=== PATIENT | female | born 1925 | race Caucasian/White ===

== ENCOUNTER 2017-08-22 09:29 | Inpatient (IN) | payer MEDICARE, BC ==
[~2017-08-22] VITALS: Ht 157.5 cm; Wt 59.0 kg
[~2017-08-22 09:29] MED LIST: ASPI-605 PO; BISA5TAB10 PO; BRIM5DRO LEFTEYE; BRIM5DRO2 EACHEYE; CALC-25 PO; CLOZ100T32 PO; DOCU-141 PO; DONE10TA44 PO; DORZ10DR8 EACHEYE; HYDR25TA4 PO; LATA2.5D2 EACHEYE; LOPE2CAP14 PO; LORA1TAB PO; OXYB5TAB11 PO; POLY17PO4 PO; SODI3.5O4 EACHEYE; TIMO5DRO18 LEFTEYE; VENL37.55 PO
[2017-08-22 10:13] LABS: BASOPHILS # (AUTO) 0.1 K/uL (0.0-8.0); EOSINOPHILS # (AUTO) 0.3 K/uL (0.0-0.7); EOSINOPHILS % (AUTO) 3.5 % (0.0-7.0); HEMATOCRIT 37.9 % (31.2-41.9); HEMOGLOBIN 12.8 g/dL (10.9-14.3); LYMPHOCYTES # (AUTO) 1.8 K/uL (20.0-40.0); LYMPHOCYTES % (AUTO) 20.4 % (20.5-51.5); MEAN CORPUSCULAR HEMOGLOBIN 29.9 uug (24.7-32.8); MEAN CORPUSCULAR HGB CONC 34 g/dL (32.3-35.6); MEAN CORPUSCULAR VOLUME 88.4 fL (75.5-95.3); MONOCYTES % (AUTO) 10.7 % (0.0-11.0); NEUTROPHILS # (AUTO) 5.8 K/uL (1.8-8.9); NEUTROPHILS % (AUTO) 64.4 % (38.5-71.5); PLATELET COUNT (AUTO) 263 K/uL (179-408); RED BLOOD CELL COUNT(AUTO) 4.28 MIL/uL (3.63-4.92); WHITE BLOOD COUNT (AUTO) 8.9 K/uL (3.8-11.8)
[2017-08-22 10:17] LABS: CARBON DIOXIDE 27 mmol/L (21-32); CHLORIDE 102 mmol/L (98-107); CREATININE 1.2 mg/dL (0.6-1.3); GLUCOSE 156 mg/dL (74-106); UREA NITROGEN, BLOOD 17 mg/dL (7-18)
[2017-08-22 10:22] LABS: ALANINE AMINOTRANSFERASE 73 U/L (14-59); ALKALINE PHOSPHATASE 73 U/L (50-136); ASPARTATE AMINOTRANSFERASE 39 U/L (15-37); BILIRUBIN,TOTAL 0.3 mg/dL (0.2-1.0); TOTAL PROTEIN, SERUM 6.1 g/dL (6.4-8.2)
[2017-08-22] MEDS ORDERED: CEFTRIAXONE 1 G in IV DEXTROSE 5% 50 ML IV ONE (11:30)
[2017-08-22] MEDS ORDERED: CEFTRIAXONE 1 G VIAL ONE (11:34)
[2017-08-22] MEDS ORDERED: BARRIER CREAM TP (12:26)
[2017-08-22] MEDS ORDERED: FOLI0.8T PO (12:26)
[2017-08-22] MEDS ORDERED: MIRT15TA PO (12:26)
[2017-08-22] MEDS ORDERED: BRIM5DRO2 EACHEYE (12:26)
[2017-08-22] MEDS ORDERED: BENZ28CR2 TP (12:27)
[2017-08-22] MEDS ORDERED: PETR113O TP (12:27)
[2017-08-22] MEDS ORDERED: ZINC57OI3 TP (12:27)
[2017-08-22] MEDS ORDERED: NYST1POW MC (12:27)
[2017-08-22] MEDS ORDERED: ACET325T53 PO (12:27)
[2017-08-22] MEDS ORDERED: MENT71OI TP (12:27)
[2017-08-22] MEDS ORDERED: VITA1CAP47 PO (12:27)
[2017-08-22] MEDS ORDERED: GUAI5SYR4 PO (12:27)
[2017-08-22] MEDS ORDERED: LEVOFLOXACIN 750MG/D5W 750 MG in PREMIXED 1 EACH IV SCH ×2 (12:30→15:00)
[2017-08-22] MEDS ORDERED: LATANOPROST OPHT DROP 2.5 ML BOTTLE EACHEYE SCH (12:30)
[2017-08-22] MEDS ORDERED: ACETAMINOPHEN 325 MG TABLET PO PRN ×2 (12:30)
[2017-08-22] MEDS ORDERED: BISACODYL 5 MG TABLET.DR PO PRN (12:30)
[2017-08-22] MEDS ORDERED: GUAIFENESIN/CODEINE 5 ML LIQUID UDC PO PRN (12:30)
[2017-08-22] MEDS ORDERED: DORZOLAMIDE 2% OPHT DROP 10 ML BOTTLE EACHEYE SCH (12:30)
[2017-08-22 14:00] VITALS: BP 141/72
[2017-08-22 15:15] VITALS: BP 147/72
[2017-08-22] MEDS ORDERED: BLOOD SUGAR DIAGNOSTIC 1 EACH STRIP VI SCH (16:30)
[2017-08-22] MEDS: DONEPEZIL 10 MG TABLET PO SCH (17:03)
[2017-08-22] MEDS: DOCUSATE SODIUM 100 MG CAPSULE PO SCH ×2 (17:03→17:04)
[2017-08-22] MEDS: OXYBUTYNIN CHLORIDE 5 MG TABLET PO SCH (17:03)
[2017-08-22] MEDS: ASPIRIN EC 81 MG TABLET.DR PO SCH (17:03)
[2017-08-22] MEDS: BRINZOLAMIDE 1% OPHT DROP 10 ML BOTTLE EACHEYE SCH (17:04)
[2017-08-22] MEDS: HYDROCHLOROTHIAZIDE 25 MG TABLET PO SCH (17:04)
[2017-08-22] MEDS: BLOOD SUGAR DIAGNOSTIC 1 EACH STRIP VI SCH ×2 (18:36→23:59)
[2017-08-22 20:00] VITALS: BP 103/52
[2017-08-22] MEDS: LATANOPROST OPHT DROP 2.5 ML BOTTLE EACHEYE SCH (20:11)
[2017-08-22] MEDS: MIRTAZAPINE 15 MG TABLET PO SCH (20:11)
[2017-08-22] MEDS ORDERED: CLOZAPINE 100 MG TABLET PO SCH (21:00)
[2017-08-22] MEDS ORDERED: CLOZAPINE 100 MG TABLET PO ONE (21:00)
[2017-08-22] MEDS: CLOZAPINE 100 MG TABLET PO SCH (21:00)
[2017-08-23] VITALS: BP 117/63
[2017-08-23 04:00] VITALS: BP 134/73
[2017-08-23] MEDS: BLOOD SUGAR DIAGNOSTIC 1 EACH STRIP VI SCH ×4 (05:31→23:55)
[2017-08-23] MEDS: IV NS 1000 ML 1,000 ML IV PRN ×2 (06:59→22:45)
[2017-08-23 07:10] LABS: BASOPHILS % (AUTO) 0.6 % (0.0-2.0); EOSINOPHILS # (AUTO) 0.3 K/uL (0.0-0.7); EOSINOPHILS % (AUTO) 4.4 % (0.0-7.0); HEMATOCRIT 36.6 % (31.2-41.9); HEMOGLOBIN 12.1 g/dL (10.9-14.3); LYMPHOCYTES # (AUTO) 1.8 K/uL (20.0-40.0); LYMPHOCYTES % (AUTO) 22.7 % (20.5-51.5); MEAN CORPUSCULAR HEMOGLOBIN 29.4 uug (24.7-32.8); MEAN CORPUSCULAR HGB CONC 33 g/dL (32.3-35.6); MEAN CORPUSCULAR VOLUME 88.7 fL (75.5-95.3); MONOCYTES # (AUTO) 0.8 K/uL (2.0-10.0); MONOCYTES % (AUTO) 10.7 % (0.0-11.0); NEUTROPHILS # (AUTO) 4.9 K/uL (1.8-8.9); NEUTROPHILS % (AUTO) 61.6 % (38.5-71.5); PLATELET COUNT (AUTO) 240 K/uL (179-408); RED BLOOD CELL COUNT(AUTO) 4.13 MIL/uL (3.63-4.92); WHITE BLOOD COUNT (AUTO) 7.9 K/uL (3.8-11.8)
[2017-08-23 07:19] LABS: CARBON DIOXIDE 23 mmol/L (21-32); CHLORIDE 107 mmol/L (98-107); CHOLESTEROL 168 mg/dL (<200); GLUCOSE 138 mg/dL (74-106); HDL CHOLESTEROL 30 mg/dL (40-60); POTASSIUM 3.6 mmol/L (3.5-5.1); TRIGLYCERIDES 157 MG/DL (30-150); UREA NITROGEN, BLOOD 18 mg/dL (7-18)
[2017-08-23] MEDS: OXYBUTYNIN CHLORIDE 5 MG TABLET PO SCH ×2 (09:32→17:39)
[2017-08-23] MEDS: DOCUSATE SODIUM 100 MG CAPSULE PO SCH ×2 (09:32→17:39)
[2017-08-23] MEDS: HYDROCHLOROTHIAZIDE 25 MG TABLET PO SCH (09:37)
[2017-08-23] MEDS: PANTOPRAZOLE SODIUM 40 MG VIAL IV SCH (09:37)
[2017-08-23] MEDS: ASPIRIN EC 81 MG TABLET.DR PO SCH (09:37)
[2017-08-23] MEDS: BRINZOLAMIDE 1% OPHT DROP 10 ML BOTTLE EACHEYE SCH ×2 (09:38→17:40)
[2017-08-23] MEDS: DONEPEZIL 10 MG TABLET PO SCH (09:40)
[2017-08-23] MEDS: ENOXAPARIN SODIUM 40 MG/0.4 ML DISP.SYRIN SQ SCH (11:46)
[2017-08-23 11:55] VITALS: BP 110/49
[2017-08-23] MEDS: LORAZEPAM 1 MG TABLET PO PRN (15:42)
[2017-08-23 15:48] VITALS: BP 143/67
[2017-08-23 20:13] VITALS: BP 100/49
[2017-08-23] MEDS: ATORVASTATIN 20 MG TABLET PO SCH (21:00)
[2017-08-23] MEDS: MIRTAZAPINE 15 MG TABLET PO SCH (21:00)
[2017-08-23] MEDS: CLOZAPINE 100 MG TABLET PO SCH (21:00)
[2017-08-23] MEDS: LATANOPROST OPHT DROP 2.5 ML BOTTLE EACHEYE SCH (21:12)
[2017-08-24] MEDS: BLOOD SUGAR DIAGNOSTIC 1 EACH STRIP VI SCH ×4 (06:21→23:59)
[2017-08-24 06:39] VITALS: BP 153/69
[2017-08-24] MEDS: OXYBUTYNIN CHLORIDE 5 MG TABLET PO SCH ×2 (09:27→17:33)
[2017-08-24] MEDS: HYDROCHLOROTHIAZIDE 25 MG TABLET PO SCH (09:27)
[2017-08-24] MEDS: DONEPEZIL 10 MG TABLET PO SCH (09:27)
[2017-08-24] MEDS: PANTOPRAZOLE SODIUM 40 MG VIAL IV SCH (09:27)
[2017-08-24] MEDS: DOCUSATE SODIUM 100 MG CAPSULE PO SCH ×2 (09:27→17:34)
[2017-08-24] MEDS: ASPIRIN EC 81 MG TABLET.DR PO SCH (09:27)
[2017-08-24] MEDS: ENOXAPARIN SODIUM 40 MG/0.4 ML DISP.SYRIN SQ SCH (09:28)
[2017-08-24] MEDS: BRINZOLAMIDE 1% OPHT DROP 10 ML BOTTLE EACHEYE SCH ×2 (09:37→17:36)
[2017-08-24 10:46] VITALS: BP 125/49
[2017-08-24 16:09] VITALS: BP 138/67
[2017-08-24] MEDS ORDERED: LEVOFLOXACIN 750MG/D5W 750 MG in PREMIXED 1 EACH IV SCH (17:00)
[2017-08-24 19:35] VITALS: BP 135/60
[2017-08-24] MEDS: ATORVASTATIN 20 MG TABLET PO SCH (20:55)
[2017-08-24] MEDS: MIRTAZAPINE 15 MG TABLET PO SCH (20:57)
[2017-08-24] MEDS: LATANOPROST OPHT DROP 2.5 ML BOTTLE EACHEYE SCH (21:00)
[2017-08-24] MEDS: CLOZAPINE 100 MG TABLET PO SCH (21:01)
[2017-08-24] MEDS: IV NS 1000 ML 1,000 ML IV PRN (21:10)
[2017-08-25 04:35] VITALS: BP 157/64
[2017-08-25] MEDS: BLOOD SUGAR DIAGNOSTIC 1 EACH STRIP VI SCH ×2 (05:52→12:05)
[2017-08-25] MEDS ORDERED: PANTOPRAZOLE SODIUM 40 MG TABLET.DR PO SCH (07:00)
[2017-08-25] MEDS: DONEPEZIL 10 MG TABLET PO SCH (08:44)
[2017-08-25] MEDS: ASPIRIN EC 81 MG TABLET.DR PO SCH (08:44)
[2017-08-25] MEDS: DOCUSATE SODIUM 100 MG CAPSULE PO SCH ×2 (08:44→17:06)
[2017-08-25] MEDS: OXYBUTYNIN CHLORIDE 5 MG TABLET PO SCH ×2 (08:44→17:06)
[2017-08-25] MEDS: BRINZOLAMIDE 1% OPHT DROP 10 ML BOTTLE EACHEYE SCH ×2 (08:47→17:07)
[2017-08-25] MEDS: HYDROCHLOROTHIAZIDE 25 MG TABLET PO SCH (08:48)
[2017-08-25] MEDS: ENOXAPARIN SODIUM 40 MG/0.4 ML DISP.SYRIN SQ SCH (08:49)
[2017-08-25] MEDS: IV NS 1000 ML 1,000 ML IV PRN (10:29)
[2017-08-25 11:39] VITALS: BP 130/62
[2017-08-25] MEDS: LORAZEPAM 1 MG TABLET PO PRN (13:41)
[2017-08-25 15:30] VITALS: BP 146/65
== END 2017-08-25 17:13 | DRG 70 ==
LOC: ER 09:29 → TELE 12:37 → MED 08-23 10:25
PROVIDERS: ADMIT Internal Medicine; ATTEND Internal Medicine
DX: G93.41 Metabolic encephalopathy (principal); J15.9 Unspecified bacterial pneumonia; N39.0 Urinary tract infection, site not specified; F03.90 Unspecified dementia, unspecified severity, without behavioral disturbance, psychotic disturbance, mood disturbance, and anxiety; G45.9 Transient cerebral ischemic attack, unspecified; Z85.3 Personal history of malignant neoplasm of breast; Z79.82 Long term (current) use of aspirin; Z79.899 Other long term (current) drug therapy; H40.9 Unspecified glaucoma; Z90.710 Acquired absence of both cervix and uterus; Z90.10 Acquired absence of unspecified breast and nipple; M21.339 Wrist drop, unspecified wrist; I10 Essential (primary) hypertension; I25.10 Atherosclerotic heart disease of native coronary artery without angina pectoris; Z91.81 History of falling
CPT/HCPCS: 36415; 70450; 71045; 85025; 85610; 85730; 92610; 93005; 93307; 93880; 97165; A4663; C9113; J0696; J1650; J1956; J7030; J7040

== ENCOUNTER 2017-08-25 17:32 | Inpatient (IN) | payer MEDICARE, BC ==
[~2017-08-25] VITALS: Ht 157.5 cm; Wt 59.0 kg
[~2017-08-25 17:32] MED LIST changes: +ACET325T53 PO; +BARRIER CREAM TP; +BENZ28CR2 TP; -BRIM5DRO LEFTEYE; -CALC-25 PO; +DORZ10DR10 EACHEYE; -DORZ10DR8 EACHEYE; +FOLI0.8T PO; +GUAI5SYR4 PO; +MENT71OI TP; +MIRT15TA PO; +NYST1POW MC; +PETR113O TP; -POLY17PO4 PO; -TIMO5DRO18 LEFTEYE; -VENL37.55 PO; +VITA1CAP47 PO; +ZINC57OI3 TP
[2017-08-25] MEDS ORDERED: Z GUARD REMEDY PASTE 57 GM TUBE TOP PRN (18:15)
[2017-08-25 18:55] VITALS: BP 130/70
[2017-08-25 19:53] VITALS: BP 101/59
[2017-08-26] MEDS ORDERED: Z GUARD REMEDY PASTE 57 GM TUBE TP PRN
[2017-08-26] MEDS ORDERED: GUAIFENESIN/CODEINE 5 ML LIQUID UDC PO PRN
[2017-08-26] MEDS ORDERED: LOPERAMIDE HCL 2 MG CAPSULE PO PRN
[2017-08-26 07:30] VITALS: BP 156/80
[2017-08-26] MEDS: ASPIRIN EC 81 MG TABLET.DR PO SCH (08:29)
[2017-08-26] MEDS: LORAZEPAM 1 MG TABLET PO PRN ×2 (08:30→17:00)
[2017-08-26] MEDS: HYDROCHLOROTHIAZIDE 25 MG TABLET PO SCH (08:30)
[2017-08-26] MEDS: OXYBUTYNIN CHLORIDE 5 MG TABLET PO SCH ×2 (08:30→17:00)
[2017-08-26] MEDS: DONEPEZIL 10 MG TABLET PO SCH (08:31)
[2017-08-26] MEDS: ACETAMINOPHEN 325 MG TABLET PO PRN ×2 (08:31→16:59)
[2017-08-26] MEDS: DOCUSATE SODIUM 100 MG CAPSULE PO SCH ×2 (08:31→16:57)
[2017-08-26] MEDS ORDERED: DORZOLAMIDE 2% OPHT DROP 10 ML BOTTLE EACHEYE SCH (09:00)
[2017-08-26 19:30] VITALS: BP 144/66
[2017-08-26] MEDS: ATORVASTATIN 20 MG TABLET PO SCH (20:26)
[2017-08-26] MEDS: MIRTAZAPINE 15 MG TABLET PO SCH (20:28)
[2017-08-26] MEDS: TIMOLOL MALEATE 0.5% OPHT DROP 5 ML BOTTLE EACHEYE SCH (20:29)
[2017-08-26] MEDS: LATANOPROST OPHT DROP 2.5 ML BOTTLE EACHEYE SCH (20:29)
[2017-08-26] MEDS: BRIMONIDINE 0.2% OPHT DROP 10 ML BOTTLE EACHEYE SCH (20:30)
[2017-08-26] MEDS: SODIUM CHLORIDE 5% OPHT OINT 3.5 GM TUBE EACHEYE SCH (20:31)
[2017-08-26] MEDS: CLOZAPINE 100 MG TABLET PO SCH (20:33)
[2017-08-27 08:00] VITALS: BP 150/78
[2017-08-27] MEDS: ACETAMINOPHEN 325 MG TABLET PO PRN (08:25)
[2017-08-27] MEDS: OXYBUTYNIN CHLORIDE 5 MG TABLET PO SCH ×2 (08:26→16:41)
[2017-08-27] MEDS: DONEPEZIL 10 MG TABLET PO SCH (08:26)
[2017-08-27] MEDS: ASPIRIN EC 81 MG TABLET.DR PO SCH (08:26)
[2017-08-27] MEDS: DOCUSATE SODIUM 100 MG CAPSULE PO SCH ×2 (08:27→16:41)
[2017-08-27] MEDS: TIMOLOL MALEATE 0.5% OPHT DROP 5 ML BOTTLE EACHEYE SCH ×2 (08:28→20:49)
[2017-08-27] MEDS: BRIMONIDINE 0.2% OPHT DROP 10 ML BOTTLE EACHEYE SCH ×2 (08:34→20:49)
[2017-08-27] MEDS: HYDROCHLOROTHIAZIDE 25 MG TABLET PO SCH (08:36)
[2017-08-27 19:54] VITALS: BP 138/63
[2017-08-27] MEDS: MIRTAZAPINE 15 MG TABLET PO SCH (20:47)
[2017-08-27] MEDS: ATORVASTATIN 20 MG TABLET PO SCH (20:47)
[2017-08-27] MEDS: SODIUM CHLORIDE 5% OPHT OINT 3.5 GM TUBE EACHEYE SCH (20:48)
[2017-08-27] MEDS: LATANOPROST OPHT DROP 2.5 ML BOTTLE EACHEYE SCH (20:48)
[2017-08-27] MEDS: CLOZAPINE 100 MG TABLET PO SCH (20:51)
[2017-08-28 07:00] VITALS: BP 103/61
[2017-08-28 08:04] LABS: BASOPHILS # (AUTO) 0.1 K/uL (0.0-8.0); BASOPHILS % (AUTO) 1.2 % (0.0-2.0); EOSINOPHILS # (AUTO) 0.4 K/uL (0.0-0.7); EOSINOPHILS % (AUTO) 4.7 % (0.0-7.0); HEMATOCRIT 42.9 % (31.2-41.9); HEMOGLOBIN 14.6 g/dL (10.9-14.3); LYMPHOCYTES # (AUTO) 1.8 K/uL (20.0-40.0); LYMPHOCYTES % (AUTO) 20.5 % (20.5-51.5); MEAN CORPUSCULAR HEMOGLOBIN 29.9 uug (24.7-32.8); MEAN CORPUSCULAR HGB CONC 34 g/dL (32.3-35.6); MONOCYTES # (AUTO) 0.8 K/uL (2.0-10.0); NEUTROPHILS # (AUTO) 5.7 K/uL (1.8-8.9); NEUTROPHILS % (AUTO) 64.6 % (38.5-71.5); PLATELET COUNT (AUTO) 246 K/uL (179-408); RED BLOOD CELL COUNT(AUTO) 4.87 MIL/uL (3.63-4.92); WHITE BLOOD COUNT (AUTO) 8.8 K/uL (3.8-11.8)
[2017-08-28] MEDS: TIMOLOL MALEATE 0.5% OPHT DROP 5 ML BOTTLE EACHEYE SCH ×2 (08:25→21:07)
[2017-08-28] MEDS: BRIMONIDINE 0.2% OPHT DROP 10 ML BOTTLE EACHEYE SCH ×2 (08:25→21:07)
[2017-08-28] MEDS: MEMANTINE HCL 10 MG TABLET PO SCH ×2 (08:26→21:08)
[2017-08-28] MEDS: OXYBUTYNIN CHLORIDE 5 MG TABLET PO SCH ×2 (08:26→17:36)
[2017-08-28] MEDS: DOCUSATE SODIUM 100 MG CAPSULE PO SCH ×2 (08:26→17:36)
[2017-08-28] MEDS: DONEPEZIL 10 MG TABLET PO SCH (08:26)
[2017-08-28] MEDS: ASPIRIN EC 81 MG TABLET.DR PO SCH (08:27)
[2017-08-28 08:28] LABS: THYROID STIMULATING HORMONE 1.835 mIU/mL (0.358-3.740)
[2017-08-28] MEDS: HYDROCHLOROTHIAZIDE 25 MG TABLET PO SCH (08:34)
[2017-08-28 08:44] LABS: ALANINE AMINOTRANSFERASE 49 U/L (14-59); ALKALINE PHOSPHATASE 69 U/L (50-136); ASPARTATE AMINOTRANSFERASE 24 U/L (15-37); BILIRUBIN,TOTAL 0.4 mg/dL (0.2-1.0); CARBON DIOXIDE 31 mmol/L (21-32); CHLORIDE 103 mmol/L (98-107); CREATININE 0.9 mg/dL (0.6-1.3); GLUCOSE 140 mg/dL (74-106); MAGNESIUM 1.9 mg/dL (1.8-2.4); POTASSIUM 3.7 mmol/L (3.5-5.1); TOTAL PROTEIN, SERUM 6.1 g/dL (6.4-8.2); UREA NITROGEN, BLOOD 20 mg/dL (7-18)
[2017-08-28] MEDS: METFORMIN HCL 500 MG TABLET PO SCH (17:37)
[2017-08-28 19:54] VITALS: BP 120/67
[2017-08-28] MEDS: LATANOPROST OPHT DROP 2.5 ML BOTTLE EACHEYE SCH (21:07)
[2017-08-28] MEDS: SODIUM CHLORIDE 5% OPHT OINT 3.5 GM TUBE EACHEYE SCH (21:07)
[2017-08-28] MEDS: MIRTAZAPINE 15 MG TABLET PO SCH (21:08)
[2017-08-28] MEDS: CLOZAPINE 100 MG TABLET PO SCH (21:08)
[2017-08-28] MEDS: ATORVASTATIN 20 MG TABLET PO SCH (21:08)
[2017-08-28] MEDS: COD LIVER OIL/ZINC OXIDE OINT 113 GM TUBE TOP SCH (21:10)
[2017-08-29 08:18] VITALS: BP 116/69
[2017-08-29] MEDS: ASPIRIN EC 81 MG TABLET.DR PO SCH (08:32)
[2017-08-29] MEDS: HYDROCHLOROTHIAZIDE 25 MG TABLET PO SCH (08:32)
[2017-08-29] MEDS: METFORMIN HCL 500 MG TABLET PO SCH ×2 (08:32→17:33)
[2017-08-29] MEDS: DONEPEZIL 10 MG TABLET PO SCH (08:33)
[2017-08-29] MEDS: DOCUSATE SODIUM 100 MG CAPSULE PO SCH ×2 (08:33→17:33)
[2017-08-29] MEDS: OXYBUTYNIN CHLORIDE 5 MG TABLET PO SCH ×2 (08:33→17:33)
[2017-08-29] MEDS: MEMANTINE HCL 10 MG TABLET PO SCH ×2 (08:33→20:28)
[2017-08-29] MEDS: LATANOPROST OPHT DROP 2.5 ML BOTTLE EACHEYE SCH (08:33)
[2017-08-29] MEDS: COD LIVER OIL/ZINC OXIDE OINT 113 GM TUBE TOP SCH ×2 (08:34→20:29)
[2017-08-29] MEDS: BRIMONIDINE 0.2% OPHT DROP 10 ML BOTTLE EACHEYE SCH ×2 (08:34→20:28)
[2017-08-29] MEDS: TIMOLOL MALEATE 0.5% OPHT DROP 5 ML BOTTLE EACHEYE SCH ×2 (08:34→20:29)
[2017-08-29 20:10] VITALS: BP 107/60
[2017-08-29] MEDS: ATORVASTATIN 20 MG TABLET PO SCH (20:27)
[2017-08-29] MEDS: CLOZAPINE 100 MG TABLET PO SCH (20:27)
[2017-08-29] MEDS: SODIUM CHLORIDE 5% OPHT OINT 3.5 GM TUBE EACHEYE SCH (20:28)
[2017-08-29] MEDS: MIRTAZAPINE 15 MG TABLET PO SCH (20:28)
[2017-08-30 08:00] VITALS: BP 142/69
[2017-08-30] MEDS: DONEPEZIL 10 MG TABLET PO SCH (08:41)
[2017-08-30] MEDS: DOCUSATE SODIUM 100 MG CAPSULE PO SCH ×2 (08:41→17:31)
[2017-08-30] MEDS: METFORMIN HCL 500 MG TABLET PO SCH ×2 (08:41→17:31)
[2017-08-30] MEDS: HYDROCHLOROTHIAZIDE 25 MG TABLET PO SCH (08:41)
[2017-08-30] MEDS: MEMANTINE HCL 10 MG TABLET PO SCH ×2 (08:42→20:09)
[2017-08-30] MEDS: TIMOLOL MALEATE 0.5% OPHT DROP 5 ML BOTTLE EACHEYE SCH ×2 (08:42→20:09)
[2017-08-30] MEDS: OXYBUTYNIN CHLORIDE 5 MG TABLET PO SCH ×2 (08:42→17:31)
[2017-08-30] MEDS: CHOLECALCIFEROL 1,000 UNIT TABLET PO SCH (08:42)
[2017-08-30] MEDS: ASPIRIN EC 81 MG TABLET.DR PO SCH (08:42)
[2017-08-30] MEDS: BRIMONIDINE 0.2% OPHT DROP 10 ML BOTTLE EACHEYE SCH ×2 (08:42→20:10)
[2017-08-30] MEDS: COD LIVER OIL/ZINC OXIDE OINT 113 GM TUBE TOP SCH ×2 (08:43→20:10)
[2017-08-30 19:30] VITALS: BP 122/60
[2017-08-30] MEDS: CLOZAPINE 100 MG TABLET PO SCH (20:08)
[2017-08-30] MEDS: ATORVASTATIN 20 MG TABLET PO SCH (20:09)
[2017-08-30] MEDS: MIRTAZAPINE 15 MG TABLET PO SCH (20:09)
[2017-08-30] MEDS: SODIUM CHLORIDE 5% OPHT OINT 3.5 GM TUBE EACHEYE SCH (20:09)
[2017-08-30] MEDS: LATANOPROST OPHT DROP 2.5 ML BOTTLE EACHEYE SCH (20:10)
[2017-08-31 07:00] VITALS: BP 143/50
[2017-08-31] MEDS: CHOLECALCIFEROL 1,000 UNIT TABLET PO SCH (08:38)
[2017-08-31] MEDS: DONEPEZIL 10 MG TABLET PO SCH (08:38)
[2017-08-31] MEDS: BRIMONIDINE 0.2% OPHT DROP 10 ML BOTTLE EACHEYE SCH ×2 (08:38→20:21)
[2017-08-31] MEDS: DOCUSATE SODIUM 100 MG CAPSULE PO SCH ×2 (08:38→17:14)
[2017-08-31] MEDS: HYDROCHLOROTHIAZIDE 25 MG TABLET PO SCH (08:39)
[2017-08-31] MEDS: METFORMIN HCL 500 MG TABLET PO SCH ×2 (08:39→17:15)
[2017-08-31] MEDS: ASPIRIN EC 81 MG TABLET.DR PO SCH (08:39)
[2017-08-31] MEDS: OXYBUTYNIN CHLORIDE 5 MG TABLET PO SCH ×2 (08:39→17:14)
[2017-08-31] MEDS: COD LIVER OIL/ZINC OXIDE OINT 113 GM TUBE TOP SCH ×2 (08:40→20:22)
[2017-08-31] MEDS: MEMANTINE HCL 10 MG TABLET PO SCH ×2 (08:40→20:21)
[2017-08-31] MEDS: TIMOLOL MALEATE 0.5% OPHT DROP 5 ML BOTTLE EACHEYE SCH ×2 (08:40→20:20)
[2017-08-31 19:41] VITALS: BP 98/57
[2017-08-31] MEDS: LATANOPROST OPHT DROP 2.5 ML BOTTLE EACHEYE SCH (20:20)
[2017-08-31] MEDS: MIRTAZAPINE 15 MG TABLET PO SCH (20:21)
[2017-08-31] MEDS: CLOZAPINE 100 MG TABLET PO SCH (20:21)
[2017-08-31] MEDS: ATORVASTATIN 20 MG TABLET PO SCH (20:21)
[2017-08-31] MEDS: SODIUM CHLORIDE 5% OPHT OINT 3.5 GM TUBE EACHEYE SCH (20:21)
[2017-09-01] MEDS: DOCUSATE SODIUM 100 MG CAPSULE PO SCH ×2 (08:00→17:07)
[2017-09-01] MEDS: METFORMIN HCL 500 MG TABLET PO SCH ×2 (08:00→17:07)
[2017-09-01] MEDS: HYDROCHLOROTHIAZIDE 25 MG TABLET PO SCH (08:00)
[2017-09-01] MEDS: ASPIRIN EC 81 MG TABLET.DR PO SCH (08:00)
[2017-09-01] MEDS: MEMANTINE HCL 10 MG TABLET PO SCH ×2 (08:00→20:44)
[2017-09-01] MEDS: DONEPEZIL 10 MG TABLET PO SCH (08:00)
[2017-09-01] MEDS: CHOLECALCIFEROL 1,000 UNIT TABLET PO SCH (08:00)
[2017-09-01] MEDS: OXYBUTYNIN CHLORIDE 5 MG TABLET PO SCH ×2 (08:00→17:07)
[2017-09-01] MEDS: LATANOPROST OPHT DROP 2.5 ML BOTTLE EACHEYE SCH ×2 (08:01→20:56)
[2017-09-01] MEDS: BRIMONIDINE 0.2% OPHT DROP 10 ML BOTTLE EACHEYE SCH ×2 (08:01→20:43)
[2017-09-01] MEDS: TIMOLOL MALEATE 0.5% OPHT DROP 5 ML BOTTLE EACHEYE SCH ×2 (08:01→20:41)
[2017-09-01 08:09] LABS: ALANINE AMINOTRANSFERASE 24 U/L (14-59); ALKALINE PHOSPHATASE 78 U/L (50-136); ASPARTATE AMINOTRANSFERASE 15 U/L (15-37); BILIRUBIN,TOTAL 0.5 mg/dL (0.2-1.0); CARBON DIOXIDE 30 mmol/L (21-32); CHLORIDE 98 mmol/L (98-107); CREATININE 0.9 mg/dL (0.6-1.3); GLUCOSE 139 mg/dL (74-106); MAGNESIUM 1.6 mg/dL (1.8-2.4); PHOSPHOROUS 3.2 mg/dL (2.5-4.9); POTASSIUM 3.6 mmol/L (3.5-5.1); TOTAL PROTEIN, SERUM 5.8 g/dL (6.4-8.2); UREA NITROGEN, BLOOD 18 mg/dL (7-18)
[2017-09-01 08:19] LABS: BASOPHILS # (AUTO) 0.1 K/uL (0.0-8.0); BASOPHILS % (AUTO) 0.7 % (0.0-2.0); EOSINOPHILS # (AUTO) 0.4 K/uL (0.0-0.7); HEMATOCRIT 38.7 % (31.2-41.9); LYMPHOCYTES # (AUTO) 1.9 K/uL (20.0-40.0); LYMPHOCYTES % (AUTO) 14.9 % (20.5-51.5); MEAN CORPUSCULAR HEMOGLOBIN 29.4 uug (24.7-32.8); MEAN CORPUSCULAR HGB CONC 34 g/dL (32.3-35.6); MEAN CORPUSCULAR VOLUME 87.5 fL (75.5-95.3); MONOCYTES # (AUTO) 1.4 K/uL (2.0-10.0); MONOCYTES % (AUTO) 11.2 % (0.0-11.0); NEUTROPHILS # (AUTO) 8.9 K/uL (1.8-8.9); NEUTROPHILS % (AUTO) 70.2 % (38.5-71.5); PLATELET COUNT (AUTO) 192 K/uL (179-408); RED BLOOD CELL COUNT(AUTO) 4.42 MIL/uL (3.63-4.92)
[2017-09-01 08:24] LABS: WHITE BLOOD COUNT (AUTO) 12.6 K/uL (3.8-11.8)
[2017-09-01] MEDS: COD LIVER OIL/ZINC OXIDE OINT 113 GM TUBE TOP SCH ×2 (09:00→20:48)
[2017-09-01 09:52] VITALS: BP 134/58
[2017-09-01] MEDS ORDERED: MAGNESIUM OXIDE 400 MG TABLET PO ONE (14:15)
[2017-09-01] MEDS: BISACODYL 5 MG TABLET.DR PO PRN (17:07)
[2017-09-01 20:26] VITALS: BP 142/70
[2017-09-01] MEDS: CLOZAPINE 100 MG TABLET PO SCH (20:40)
[2017-09-01] MEDS: SODIUM CHLORIDE 5% OPHT OINT 3.5 GM TUBE EACHEYE SCH (20:41)
[2017-09-01] MEDS: ATORVASTATIN 20 MG TABLET PO SCH (20:43)
[2017-09-01] MEDS: MIRTAZAPINE 15 MG TABLET PO SCH (20:44)
[2017-09-02] MEDS: DOCUSATE SODIUM 100 MG CAPSULE PO SCH ×2 (08:29→16:58)
[2017-09-02] MEDS: CHOLECALCIFEROL 1,000 UNIT TABLET PO SCH (08:29)
[2017-09-02] MEDS: ASPIRIN EC 81 MG TABLET.DR PO SCH (08:29)
[2017-09-02] MEDS: BRIMONIDINE 0.2% OPHT DROP 10 ML BOTTLE EACHEYE SCH ×2 (08:31→20:53)
[2017-09-02] MEDS: HYDROCHLOROTHIAZIDE 25 MG TABLET PO SCH (08:31)
[2017-09-02] MEDS: METFORMIN HCL 500 MG TABLET PO SCH ×2 (08:31→16:58)
[2017-09-02] MEDS: DONEPEZIL 10 MG TABLET PO SCH (08:31)
[2017-09-02] MEDS: OXYBUTYNIN CHLORIDE 5 MG TABLET PO SCH ×2 (08:31→16:58)
[2017-09-02] MEDS: TIMOLOL MALEATE 0.5% OPHT DROP 5 ML BOTTLE EACHEYE SCH ×2 (08:31→20:54)
[2017-09-02] MEDS: COD LIVER OIL/ZINC OXIDE OINT 113 GM TUBE TOP SCH ×2 (08:32→20:56)
[2017-09-02] MEDS: MEMANTINE HCL 10 MG TABLET PO SCH ×2 (08:39→20:55)
[2017-09-02 10:48] LABS: *BILIRUBIN,URIN NEGATIVE (NEGATIVE); *BLOOD, URINE NEGATIVE (NEGATIVE); *CLARITY,URINE CLOUDY (CLEAR); *COLOR,URINE YELLOW (YELLOW); *KETONES,URINE NEGATIVE (NEGATIVE); *PROTEIN,URINE 2+ (NEGATIVE); *UROBILINOGEN,URINE 0.2 E.U./dl (NORMAL); LEUKOCYTE ESTERASE ,URINE 1+ (NEGATIVE); NITRITE, URINE NEGATIVE (NEGATIVE); PH,URINE >=9.0 (5.0-8.0); UGLUCOSE NEGATIVE (NEGATIVE)
[2017-09-02 10:56] LABS: BACTERIA,URINE MANY /HPF (NONE SEEN); SQUAMOUS EPITHELIAL CELL,UR MANY /HPF (NONE SEEN)
[2017-09-02] MEDS: SULFAMETH/TRIMETH 800/160 MG TABLET PO SCH ×2 (13:48→20:55)
[2017-09-02 19:30] VITALS: BP 134/65
[2017-09-02] MEDS: SODIUM CHLORIDE 5% OPHT OINT 3.5 GM TUBE EACHEYE SCH (20:53)
[2017-09-02] MEDS: LATANOPROST OPHT DROP 2.5 ML BOTTLE EACHEYE SCH (20:54)
[2017-09-02] MEDS: ATORVASTATIN 20 MG TABLET PO SCH (20:54)
[2017-09-02] MEDS: CLOZAPINE 100 MG TABLET PO SCH (20:54)
[2017-09-02] MEDS: MIRTAZAPINE 15 MG TABLET PO SCH (20:55)
[2017-09-03 07:35] LABS: BASOPHILS # (AUTO) 0.1 K/uL (0.0-8.0); BASOPHILS % (AUTO) 0.5 % (0.0-2.0); EOSINOPHILS # (AUTO) 0.5 K/uL (0.0-0.7); EOSINOPHILS % (AUTO) 3.9 % (0.0-7.0); HEMATOCRIT 39.6 % (31.2-41.9); HEMOGLOBIN 13.1 g/dL (10.9-14.3); LYMPHOCYTES # (AUTO) 1.7 K/uL (20.0-40.0); LYMPHOCYTES % (AUTO) 14.5 % (20.5-51.5); MEAN CORPUSCULAR HEMOGLOBIN 29.4 uug (24.7-32.8); MEAN CORPUSCULAR HGB CONC 33 g/dL (32.3-35.6); MEAN CORPUSCULAR VOLUME 88.6 fL (75.5-95.3); MONOCYTES # (AUTO) 1.5 K/uL (2.0-10.0); MONOCYTES % (AUTO) 12.8 % (0.0-11.0); NEUTROPHILS # (AUTO) 8.1 K/uL (1.8-8.9); NEUTROPHILS % (AUTO) 68.3 % (38.5-71.5); PLATELET COUNT (AUTO) 187 K/uL (179-408); RED BLOOD CELL COUNT(AUTO) 4.47 MIL/uL (3.63-4.92); WHITE BLOOD COUNT (AUTO) 11.8 K/uL (3.8-11.8)
[2017-09-03 07:44] LABS: CARBON DIOXIDE 31 mmol/L (21-32); CHLORIDE 101 mmol/L (98-107); CREATININE 1.1 mg/dL (0.6-1.3); GLUCOSE 140 mg/dL (74-106); MAGNESIUM 1.8 mg/dL (1.8-2.4); PHOSPHOROUS 3.5 mg/dL (2.5-4.9); POTASSIUM 3.7 mmol/L (3.5-5.1); UREA NITROGEN, BLOOD 24 mg/dL (7-18)
[2017-09-03 08:34] VITALS: BP 117/61
[2017-09-03] MEDS: SULFAMETH/TRIMETH 800/160 MG TABLET PO SCH ×2 (10:48→21:26)
[2017-09-03] MEDS: ASPIRIN EC 81 MG TABLET.DR PO SCH (10:48)
[2017-09-03] MEDS: MEMANTINE HCL 10 MG TABLET PO SCH ×2 (10:48→21:27)
[2017-09-03] MEDS: HYDROCHLOROTHIAZIDE 25 MG TABLET PO SCH (10:48)
[2017-09-03] MEDS: METFORMIN HCL 500 MG TABLET PO SCH ×2 (10:48→17:58)
[2017-09-03] MEDS: DONEPEZIL 10 MG TABLET PO SCH (10:48)
[2017-09-03] MEDS: OXYBUTYNIN CHLORIDE 5 MG TABLET PO SCH ×2 (10:49→17:58)
[2017-09-03] MEDS: CHOLECALCIFEROL 1,000 UNIT TABLET PO SCH (10:49)
[2017-09-03] MEDS: LATANOPROST OPHT DROP 2.5 ML BOTTLE EACHEYE SCH ×2 (10:50→21:24)
[2017-09-03] MEDS: SODIUM CHLORIDE 5% OPHT OINT 3.5 GM TUBE EACHEYE SCH (10:50)
[2017-09-03] MEDS: TIMOLOL MALEATE 0.5% OPHT DROP 5 ML BOTTLE EACHEYE SCH ×2 (10:51→21:24)
[2017-09-03] MEDS: BRIMONIDINE 0.2% OPHT DROP 10 ML BOTTLE EACHEYE SCH ×2 (10:51→21:24)
[2017-09-03] MEDS: COD LIVER OIL/ZINC OXIDE OINT 113 GM TUBE TOP SCH ×2 (10:53→21:27)
[2017-09-03] MEDS: DOCUSATE SODIUM 100 MG CAPSULE PO SCH ×2 (11:02→17:58)
[2017-09-03 20:16] VITALS: BP 112/63
[2017-09-03] MEDS: CLOZAPINE 100 MG TABLET PO SCH (21:26)
[2017-09-03] MEDS: ATORVASTATIN 20 MG TABLET PO SCH (21:26)
[2017-09-03] MEDS: MIRTAZAPINE 15 MG TABLET PO SCH (21:26)
[2017-09-04 07:00] VITALS: BP 107/53
[2017-09-04 07:36] LABS: BASOPHILS # (AUTO) 0.1 K/uL (0.0-8.0); BASOPHILS % (AUTO) 0.7 % (0.0-2.0); EOSINOPHILS # (AUTO) 0.6 K/uL (0.0-0.7); EOSINOPHILS % (AUTO) 6.3 % (0.0-7.0); HEMATOCRIT 37.9 % (31.2-41.9); HEMOGLOBIN 12.7 g/dL (10.9-14.3); LYMPHOCYTES % (AUTO) 20.2 % (20.5-51.5); MEAN CORPUSCULAR HEMOGLOBIN 29.6 uug (24.7-32.8); MEAN CORPUSCULAR HGB CONC 34 g/dL (32.3-35.6); MONOCYTES # (AUTO) 1.3 K/uL (2.0-10.0); MONOCYTES % (AUTO) 13.6 % (0.0-11.0); NEUTROPHILS # (AUTO) 5.7 K/uL (1.8-8.9); NEUTROPHILS % (AUTO) 59.2 % (38.5-71.5); PLATELET COUNT (AUTO) 187 K/uL (179-408); WHITE BLOOD COUNT (AUTO) 9.7 K/uL (3.8-11.8)
[2017-09-04] MEDS: ASPIRIN EC 81 MG TABLET.DR PO SCH (08:18)
[2017-09-04] MEDS: SULFAMETH/TRIMETH 800/160 MG TABLET PO SCH (08:18)
[2017-09-04] MEDS: CHOLECALCIFEROL 1,000 UNIT TABLET PO SCH (08:18)
[2017-09-04] MEDS: DOCUSATE SODIUM 100 MG CAPSULE PO SCH ×2 (08:18→17:02)
[2017-09-04] MEDS: MEMANTINE HCL 10 MG TABLET PO SCH ×2 (08:19→21:20)
[2017-09-04] MEDS: DONEPEZIL 10 MG TABLET PO SCH (08:19)
[2017-09-04] MEDS: METFORMIN HCL 500 MG TABLET PO SCH ×2 (08:19→17:02)
[2017-09-04] MEDS: OXYBUTYNIN CHLORIDE 5 MG TABLET PO SCH ×2 (08:19→17:01)
[2017-09-04] MEDS: HYDROCHLOROTHIAZIDE 25 MG TABLET PO SCH (08:19)
[2017-09-04] MEDS: COD LIVER OIL/ZINC OXIDE OINT 113 GM TUBE TOP SCH ×2 (08:20→21:27)
[2017-09-04] MEDS: TIMOLOL MALEATE 0.5% OPHT DROP 5 ML BOTTLE EACHEYE SCH ×2 (08:20→21:29)
[2017-09-04] MEDS: BRIMONIDINE 0.2% OPHT DROP 10 ML BOTTLE EACHEYE SCH ×2 (08:20→21:32)
[2017-09-04] MEDS: BISACODYL 5 MG TABLET.DR PO PRN (17:01)
[2017-09-04 19:30] VITALS: BP 149/66
[2017-09-04] MEDS: ATORVASTATIN 20 MG TABLET PO SCH (21:20)
[2017-09-04] MEDS: CEFUROXIME AXETIL 250 MG TABLET PO SCH (21:21)
[2017-09-04] MEDS: CLOZAPINE 100 MG TABLET PO SCH (21:22)
[2017-09-04] MEDS: MIRTAZAPINE 15 MG TABLET PO SCH (21:24)
[2017-09-04] MEDS: SODIUM CHLORIDE 5% OPHT OINT 3.5 GM TUBE EACHEYE SCH (21:28)
[2017-09-04] MEDS: LATANOPROST OPHT DROP 2.5 ML BOTTLE EACHEYE SCH (21:28)
[2017-09-05 07:30] VITALS: BP 116/69
[2017-09-05] MEDS: MEMANTINE HCL 10 MG TABLET PO SCH ×2 (08:22→20:29)
[2017-09-05] MEDS: ASPIRIN EC 81 MG TABLET.DR PO SCH (08:22)
[2017-09-05] MEDS: DOCUSATE SODIUM 100 MG CAPSULE PO SCH ×2 (08:22→17:40)
[2017-09-05] MEDS: OXYBUTYNIN CHLORIDE 5 MG TABLET PO SCH ×2 (08:22→17:40)
[2017-09-05] MEDS: METFORMIN HCL 500 MG TABLET PO SCH ×2 (08:22→17:40)
[2017-09-05] MEDS: CHOLECALCIFEROL 1,000 UNIT TABLET PO SCH (08:23)
[2017-09-05] MEDS: HYDROCHLOROTHIAZIDE 25 MG TABLET PO SCH (08:23)
[2017-09-05] MEDS: TIMOLOL MALEATE 0.5% OPHT DROP 5 ML BOTTLE EACHEYE SCH ×2 (08:24→20:30)
[2017-09-05] MEDS: CEFUROXIME AXETIL 250 MG TABLET PO SCH ×2 (08:24→20:29)
[2017-09-05] MEDS: BRIMONIDINE 0.2% OPHT DROP 10 ML BOTTLE EACHEYE SCH ×2 (08:24→20:30)
[2017-09-05] MEDS: DONEPEZIL 10 MG TABLET PO SCH (08:24)
[2017-09-05] MEDS: COD LIVER OIL/ZINC OXIDE OINT 113 GM TUBE TOP SCH ×2 (08:25→20:37)
[2017-09-05 20:04] VITALS: BP 111/67
[2017-09-05] MEDS: MIRTAZAPINE 15 MG TABLET PO SCH (20:28)
[2017-09-05] MEDS: CLOZAPINE 100 MG TABLET PO SCH (20:29)
[2017-09-05] MEDS: ATORVASTATIN 20 MG TABLET PO SCH (20:29)
[2017-09-05] MEDS: SODIUM CHLORIDE 5% OPHT OINT 3.5 GM TUBE EACHEYE SCH (20:30)
[2017-09-05] MEDS: LATANOPROST OPHT DROP 2.5 ML BOTTLE EACHEYE SCH (20:30)
[2017-09-06 07:30] VITALS: BP 131/68
[2017-09-06] MEDS: CHOLECALCIFEROL 1,000 UNIT TABLET PO SCH (08:15)
[2017-09-06] MEDS: METFORMIN HCL 500 MG TABLET PO SCH ×2 (08:16→17:22)
[2017-09-06] MEDS: ASPIRIN EC 81 MG TABLET.DR PO SCH (08:16)
[2017-09-06] MEDS: DOCUSATE SODIUM 100 MG CAPSULE PO SCH ×2 (08:16→17:00)
[2017-09-06] MEDS: MEMANTINE HCL 10 MG TABLET PO SCH ×2 (08:16→20:19)
[2017-09-06] MEDS: DONEPEZIL 10 MG TABLET PO SCH (08:18)
[2017-09-06] MEDS: HYDROCHLOROTHIAZIDE 25 MG TABLET PO SCH (08:18)
[2017-09-06] MEDS: OXYBUTYNIN CHLORIDE 5 MG TABLET PO SCH ×2 (08:19→17:22)
[2017-09-06] MEDS: CEFUROXIME AXETIL 250 MG TABLET PO SCH ×2 (08:21→20:16)
[2017-09-06] MEDS: BRIMONIDINE 0.2% OPHT DROP 10 ML BOTTLE EACHEYE SCH ×2 (08:21→20:15)
[2017-09-06] MEDS: TIMOLOL MALEATE 0.5% OPHT DROP 5 ML BOTTLE EACHEYE SCH ×2 (08:21→20:15)
[2017-09-06] MEDS: COD LIVER OIL/ZINC OXIDE OINT 113 GM TUBE TOP SCH ×2 (08:26→20:24)
[2017-09-06] MEDS: LORAZEPAM 1 MG TABLET PO PRN (17:43)
[2017-09-06 20:15] VITALS: BP 109/57
[2017-09-06] MEDS: LATANOPROST OPHT DROP 2.5 ML BOTTLE EACHEYE SCH (20:16)
[2017-09-06] MEDS: CLOZAPINE 100 MG TABLET PO SCH (20:16)
[2017-09-06] MEDS: SODIUM CHLORIDE 5% OPHT OINT 3.5 GM TUBE EACHEYE SCH (20:16)
[2017-09-06] MEDS: MIRTAZAPINE 15 MG TABLET PO SCH (20:19)
[2017-09-06] MEDS: ATORVASTATIN 20 MG TABLET PO SCH (20:19)
[2017-09-07 08:02] VITALS: BP 139/72
[2017-09-07] MEDS: METFORMIN HCL 500 MG TABLET PO SCH ×2 (08:49→17:56)
[2017-09-07] MEDS: ASPIRIN EC 81 MG TABLET.DR PO SCH (08:49)
[2017-09-07] MEDS: CHOLECALCIFEROL 1,000 UNIT TABLET PO SCH (08:50)
[2017-09-07] MEDS: HYDROCHLOROTHIAZIDE 25 MG TABLET PO SCH (08:50)
[2017-09-07] MEDS: MEMANTINE HCL 10 MG TABLET PO SCH ×2 (08:51→20:26)
[2017-09-07] MEDS: OXYBUTYNIN CHLORIDE 5 MG TABLET PO SCH ×2 (08:51→17:56)
[2017-09-07] MEDS: DONEPEZIL 10 MG TABLET PO SCH (08:51)
[2017-09-07] MEDS: DOCUSATE SODIUM 100 MG CAPSULE PO SCH ×2 (08:51→17:55)
[2017-09-07] MEDS: CEFUROXIME AXETIL 250 MG TABLET PO SCH ×2 (08:52→20:26)
[2017-09-07] MEDS: BRIMONIDINE 0.2% OPHT DROP 10 ML BOTTLE EACHEYE SCH ×2 (08:53→20:25)
[2017-09-07] MEDS: COD LIVER OIL/ZINC OXIDE OINT 113 GM TUBE TOP SCH ×2 (08:54→20:27)
[2017-09-07] MEDS: TIMOLOL MALEATE 0.5% OPHT DROP 5 ML BOTTLE EACHEYE SCH ×2 (08:54→20:25)
[2017-09-07 19:30] VITALS: BP 139/58
[2017-09-07] MEDS: SODIUM CHLORIDE 5% OPHT OINT 3.5 GM TUBE EACHEYE SCH (20:25)
[2017-09-07] MEDS: LATANOPROST OPHT DROP 2.5 ML BOTTLE EACHEYE SCH (20:25)
[2017-09-07] MEDS: ATORVASTATIN 20 MG TABLET PO SCH (20:26)
[2017-09-07] MEDS: CLOZAPINE 100 MG TABLET PO SCH (20:26)
[2017-09-07] MEDS: MIRTAZAPINE 15 MG TABLET PO SCH (20:26)
[2017-09-08 08:00] VITALS: BP 159/81
[2017-09-08] MEDS: DOCUSATE SODIUM 100 MG CAPSULE PO SCH ×2 (08:26→17:42)
[2017-09-08] MEDS: MEMANTINE HCL 10 MG TABLET PO SCH ×2 (08:27→20:47)
[2017-09-08] MEDS: METFORMIN HCL 500 MG TABLET PO SCH ×2 (08:27→17:41)
[2017-09-08] MEDS: DONEPEZIL 10 MG TABLET PO SCH (08:27)
[2017-09-08] MEDS: CHOLECALCIFEROL 1,000 UNIT TABLET PO SCH (08:28)
[2017-09-08] MEDS: OXYBUTYNIN CHLORIDE 5 MG TABLET PO SCH ×2 (08:28→17:42)
[2017-09-08] MEDS: ASPIRIN EC 81 MG TABLET.DR PO SCH (08:28)
[2017-09-08] MEDS: HYDROCHLOROTHIAZIDE 25 MG TABLET PO SCH (08:28)
[2017-09-08] MEDS: CEFUROXIME AXETIL 250 MG TABLET PO SCH ×2 (08:28→20:49)
[2017-09-08] MEDS: BRIMONIDINE 0.2% OPHT DROP 10 ML BOTTLE EACHEYE SCH ×2 (08:29→20:49)
[2017-09-08] MEDS: TIMOLOL MALEATE 0.5% OPHT DROP 5 ML BOTTLE EACHEYE SCH ×2 (08:29→20:51)
[2017-09-08] MEDS: COD LIVER OIL/ZINC OXIDE OINT 113 GM TUBE TOP SCH ×2 (08:31→20:48)
[2017-09-08 20:00] VITALS: BP 145/88
[2017-09-08 20:04] VITALS: BP 151/78
[2017-09-08] MEDS: ATORVASTATIN 20 MG TABLET PO SCH (20:47)
[2017-09-08] MEDS: MIRTAZAPINE 15 MG TABLET PO SCH (20:47)
[2017-09-08] MEDS: SODIUM CHLORIDE 5% OPHT OINT 3.5 GM TUBE EACHEYE SCH (20:48)
[2017-09-08] MEDS: LATANOPROST OPHT DROP 2.5 ML BOTTLE EACHEYE SCH (20:50)
[2017-09-08] MEDS: CLOZAPINE 100 MG TABLET PO SCH (20:50)
[2017-09-09] MEDS: OXYBUTYNIN CHLORIDE 5 MG TABLET PO SCH ×2 (08:36→16:28)
[2017-09-09] MEDS: MEMANTINE HCL 10 MG TABLET PO SCH ×2 (08:36→20:37)
[2017-09-09] MEDS: DONEPEZIL 10 MG TABLET PO SCH (08:36)
[2017-09-09] MEDS: ASPIRIN EC 81 MG TABLET.DR PO SCH (08:36)
[2017-09-09] MEDS: DOCUSATE SODIUM 100 MG CAPSULE PO SCH ×2 (08:36→16:28)
[2017-09-09] MEDS: METFORMIN HCL 500 MG TABLET PO SCH ×2 (08:36→17:02)
[2017-09-09] MEDS: CHOLECALCIFEROL 1,000 UNIT TABLET PO SCH (08:37)
[2017-09-09] MEDS: CEFUROXIME AXETIL 250 MG TABLET PO SCH ×2 (08:37→20:34)
[2017-09-09] MEDS: HYDROCHLOROTHIAZIDE 25 MG TABLET PO SCH (08:37)
[2017-09-09] MEDS: BRIMONIDINE 0.2% OPHT DROP 10 ML BOTTLE EACHEYE SCH ×2 (08:47→20:35)
[2017-09-09] MEDS: TIMOLOL MALEATE 0.5% OPHT DROP 5 ML BOTTLE EACHEYE SCH ×2 (08:47→20:35)
[2017-09-09] MEDS: COD LIVER OIL/ZINC OXIDE OINT 113 GM TUBE TOP SCH ×2 (10:03→20:38)
[2017-09-09] MEDS: ACETAMINOPHEN 325 MG TABLET PO PRN (20:33)
[2017-09-09] MEDS: CLOZAPINE 100 MG TABLET PO SCH (20:34)
[2017-09-09] MEDS: ATORVASTATIN 20 MG TABLET PO SCH (20:34)
[2017-09-09] MEDS: MIRTAZAPINE 15 MG TABLET PO SCH (20:34)
[2017-09-09] MEDS: SODIUM CHLORIDE 5% OPHT OINT 3.5 GM TUBE EACHEYE SCH (20:35)
[2017-09-09] MEDS: LATANOPROST OPHT DROP 2.5 ML BOTTLE EACHEYE SCH (20:35)
[2017-09-09] MEDS: BISACODYL 5 MG TABLET.DR PO PRN (20:38)
[2017-09-09 21:16] VITALS: BP 115/54
[2017-09-10] MEDS: OXYBUTYNIN CHLORIDE 5 MG TABLET PO SCH (08:28)
[2017-09-10] MEDS: CHOLECALCIFEROL 1,000 UNIT TABLET PO SCH (08:28)
[2017-09-10] MEDS: ASPIRIN EC 81 MG TABLET.DR PO SCH (08:28)
[2017-09-10] MEDS: DONEPEZIL 10 MG TABLET PO SCH (08:28)
[2017-09-10] MEDS: METFORMIN HCL 500 MG TABLET PO SCH (08:28)
[2017-09-10] MEDS: DOCUSATE SODIUM 100 MG CAPSULE PO SCH (08:28)
[2017-09-10] MEDS: MEMANTINE HCL 10 MG TABLET PO SCH (08:28)
[2017-09-10 08:31] VITALS: BP 124/68
[2017-09-10] MEDS: HYDROCHLOROTHIAZIDE 25 MG TABLET PO SCH (08:31)
[2017-09-10] MEDS: TIMOLOL MALEATE 0.5% OPHT DROP 5 ML BOTTLE EACHEYE SCH (08:32)
[2017-09-10] MEDS: CEFUROXIME AXETIL 250 MG TABLET PO SCH (08:32)
[2017-09-10] MEDS: BRIMONIDINE 0.2% OPHT DROP 10 ML BOTTLE EACHEYE SCH (08:32)
[2017-09-10] MEDS: COD LIVER OIL/ZINC OXIDE OINT 113 GM TUBE TOP SCH (09:17)
[2017-09-10] MEDS: BISACODYL 5 MG TABLET.DR PO PRN (11:16)
== END 2017-09-10 14:30 | DRG 70 ==
LOC: SA1 17:32
PROVIDERS: ADMIT Physical Medicine & Rehabilitation Pain Medicine; ATTEND Physical Medicine & Rehabilitation Pain Medicine
DX: G93.41 Metabolic encephalopathy (principal); E43 Unspecified severe protein-calorie malnutrition; J15.9 Unspecified bacterial pneumonia; L89.310 Pressure ulcer of right buttock, unstageable; L89.150 Pressure ulcer of sacral region, unstageable; L89.320 Pressure ulcer of left buttock, unstageable; D68.59 Other primary thrombophilia; I69.851 Hemiplegia and hemiparesis following other cerebrovascular disease affecting right dominant side; N39.0 Urinary tract infection, site not specified; R26.9 Unspecified abnormalities of gait and mobility; E11.9 Type 2 diabetes mellitus without complications; F03.90 Unspecified dementia, unspecified severity, without behavioral disturbance, psychotic disturbance, mood disturbance, and anxiety; E78.5 Hyperlipidemia, unspecified; H40.9 Unspecified glaucoma; I10 Essential (primary) hypertension; I25.10 Atherosclerotic heart disease of native coronary artery without angina pectoris; Z85.3 Personal history of malignant neoplasm of breast; F32.9 Major depressive disorder, single episode, unspecified; G81.91 Hemiplegia, unspecified affecting right dominant side; R53.1 Weakness
CPT/HCPCS: 36415; 70030-TC; 71045; 82306; 83735; 84100; 84443; 85025; 87077; 87086; 92507; 92523; 92610; 97110; 97112; 97116; 97165; 97530; 97535; C1758; J3590